=== PATIENT | male | born 1945 | race Caucasian/White ===

== ENCOUNTER 2024-10-21 07:50 | Day surgery (SDC) | payer OTHER, MEDICAID, SELFPAY ==
[2024-10-20 09:50] VITALS: BMI 20.8
--- NOTE | 2024-10-20 10:06 | EKG_ITS ---
[facility] Test Date: 2024-10-20 Pat Name: EMI LINTON Department: Room: - Gender: Male Data Warehouse Developer: JACINTO : 1945 Requested By: Remberto Washington Order Number: [id number] Reading MD: Remberto Washington Measurements Intervals [place] Rate: 99 P: [place]: QRS: -62 QRSD: 80 T: 72 QT: 342 QTc: 440 Interpretive Statements ATRIAL FIBRILLATION LEFT ANTERIOR FASCICULAR BLOCK ANTEROSEPTAL MYOCARDIAL INFARCTION , OF INDETERMINATE AGE No previous ECG available for comparison /store/S0/[id number]
[2024-10-20 11:11] LABS: Basophils % (Auto) 0 % (0-2.5); Eosinophils # (Auto) 0.1 Thou/mm3 (0.0-0.5); Eosinophils % (Auto) 1 % (0-10); Hematocrit 38.7 % (41.0-53.0); Hemoglobin 13.4 g/dL (13.5-16.0); Immature Granulocytes % (Auto) 0 % (0-0); Immature Granulocytes Auto 0.04 Thou/mm3 (0.00-0.00); Lymphocytes # (Auto) 1.5 Thou/mm3 (1.0-4.8); Lymphocytes % (Auto) 15 % (10-50); Mean Corpuscular HGB Conc 34.6 g/dl (31.0-37.0); Mean Corpuscular Hemoglobin 33.9 pg (25.0-35.0); Mean Corpuscular Volume 98 fL (80-100); Monocytes # (Auto) 0.7 Thou/mm3 (0.0-0.8); Monocytes % (Auto) 7 % (0-12); Neutrophils # (Auto) 8.1 Thou/mm3 (1.8-7.7); Neutrophils % (Auto) 77 % (37-80); Nucleated Red Blood Cell % 0 /100 WBC (0); Platelet Count 267 Thou/mm3 (140-440); RDW Standard Deviation 47.7 fL (35.1-43.9); Red Blood Count 3.95 Miln/mm3 (4.50-5.90); White Blood Count 10.5 Thou/mm3 (3.8-10.6)
[2024-10-20 11:30] LABS: Alanine Aminotransferase 14 U/L (10-49); Albumin/Globulin Ratio 1.8 (1.2-2.2); Alkaline Phosphatase 97 U/L (46-116); Anion Gap 9 (7-16); Aspartate Amino Transferase 16 U/L (0-34); BUN/Creatinine Ratio 13 Ratio (12-20); Bilirubin,Total 0.6 mg/dL (0.3-1.2); Blood Urea Nitrogen 15 mg/dL (9-23); Calcium 10.4 mg/dL (8.3-10.6); Calcium (Corrected) 10.4 mg/dL (8.5-10.1); Carbon Dioxide 34.7 mMol/L (20.0-31.0); Chloride 97 mMol/L (98-107); Creatinine (Component) 1.2 mg/dL (0.6-1.3); Estimated Creatinine Clearance 44.4 mL/min (>60); Globulin 2.8 gm/dL (2.3-3.5); Glucose 147 mg/dL (74-106); Osmolality,Calculated 285 (275-295); Potassium 3.6 mMol/L (3.4-5.1); Sodium 141 mMol/L (136-145); Total Protein 7.8 gm/dL (5.7-8.2); eGFR > 60 See Note
[2024-10-20 11:44] LABS: Prothrombin Time 11.3 Seconds (9.0-12.2)
--- NOTE | 2024-10-20 14:20 | SUR.PREOP ---
Instructions given to pt's son and Dipika nurse at [facility] for pt to be NPO afer [place], pt may take HTN meds with a sipp of water in AM, pt to be bath with CHG soap today and tomorrow before appt. Pt to be here at 0800 AM tomorrow.
--- NOTE | 2024-10-20 14:38 | SUR.PREOP ---
Cardiac echo and EKG reviewed with Dr Washington.
[2024-10-21] VITALS (8 sets, daily range): BP systolic 109–132; BP diastolic 64–82; PULSE 80–94; RESP 12–18; TEMP 36.2–36.9; O2SAT 98–100; BMI 21.3
--- NOTE | 2024-10-21 11:35 | SUR.PHASEI ---
1135: Pt. wakes to name then drifts back to sleep, vitals stable, breathing unlabored, dressing to right lower ABD CDI, no active bleed noted, report received from Roxi HODGE and MD Washington.
--- NOTE | 2024-10-21 11:39 | PD.SUROPNT ---
Date of Procedure 10/21/24 Pre Op Diagnosis Large symptomatic right inguinal hernia Post Op Diagnosis Same, indirect inguinal hernia Procedure Repair of the right indirect inguinal hernia with high ligation of the sac and placement of 2 x 4 Marlex mesh on the floor of the inguinal canal Findings Patient was found to have a large indirect hernia which was firmly adherent to the cord structures which was and ligated doubly. The floor of the inguinal canal appeared strong Procedure Description After the patient was given LMA anesthesia is lower abdomen was prepped with chloreprep solution and draped. Standard right groin incision was made in the external oblique was reached. Incision was made over the external oblique and the patient was found to have a large sac next to the cord structures. The cord structures were encircled around a [place] drain and the sac was easily . It was opened and was found to contain none because it was reduced before the surgery.. Patient had a large opening in this hernial sac in the mouth of the internal ring was wide. I suture ligated this with 2-0 chromic and then divided. Another 2-0 chromic suture ligation was used to prevent any slippage of the previous suture. Then I palpated the floor of the inguinal canal which appeared to be strong. I placed a 2 x 4 Marlex mesh and attached it medially to the pubic tubercle and laterally it was tucked underneath the external oblique after crossing the cord structures. I placed one stitch of Prolene lateral to the cord structures. Then external oblique was closed with running 2-0 Vicryl and subcutaneous tissues was approximated with 30 plain I injected half percent Marcaine with epinephrine for analgesia and the skin was closed with 4-0 Monocryl. Dressing was applied with Adaptic and 4 x 4 and the patient tolerated the procedure well and left operating room in stable condition. Anesthesia other Pathology / specimen None IVF Infused 600 Estimated Blood Loss 20 Condition Stable Disposition PACU Surgeon Kadeem Kan MD Surgical Staff Operation Date: 10/21/24 10:00 Case Staff Anesthesiologist: Remberto Washington [id number] consultant: Mercedes Mcnamara
--- NOTE | 2024-10-21 11:50 | SUR.PHASEI ---
pt drowsy but arouses to verbal commands, breathing unlabored, dressing to right inguinal region clean, dry, and intact, report from Priscilla HODGE
--- NOTE | 2024-10-21 12:27 | SUR.PHASEII ---
Report to Priscilla HODGE
--- NOTE | 2024-10-21 12:27 | SUR.PHASEII ---
1227: Pt. AAOx4, vitals stable, breathing unlabored, no complaint of pain or nausea, dressing to right lower ABD CDI, no active bleed noted, pt. meets DC criteria, Priscilla HODGE resuming care of pt., report received from Wen Wong RN.
--- NOTE | 2024-10-21 12:35 | SUR.PHASEII ---
1235: Pt. AAOx4, vitals stable, breathing unlabored, no complaint of pain or nausea, dressing to lower right ABD CDI, no active bleed noted, pt. tolerated bites of ice well, pt. ambulated to wheelchair with minimal assist, tolerated well, gave discharge instructions to the pt. and his ride, both verbalized understanding and had no further questions. Pt. left with all personal belongings.
== END 2024-10-21 12:35 | disposition home or self-care (01) ==
PROVIDERS: PCP Family Medicine; Referring Provider Surgery; Visit Provider Surgery
PROC: (CPT 49505; principal; 2024-10-21 10:00)
DX: K40.90 Unilateral inguinal hernia, without obstruction or gangrene, not specified as recurrent (principal); Z01.810 Encounter for preprocedural cardiovascular examination
CPT/HCPCS: 49505; 36415; 80053; 85025; 85610; 85730; 93005; A4217; A4649; C1781; J1100; J2250; J2704; J2765; J3010; J3490

== ENCOUNTER 2024-12-15 16:01 | Emergency (ER) | payer OTHER, MEDICAID, SELFPAY ==
[2024-12-15 16:04] VITALS: PULSE 87; RESP 16; O2SAT 97
[2024-12-15 16:29] VITALS: BP 135/92; PULSE 89; RESP 17; O2SAT 96
[2024-12-15 16:38] VITALS: TEMP 36.8
--- NOTE | 2024-12-15 16:38 | XR_ITS ---
Examination: CT cervical spine without contrast 2-D sagittal reconstructions 2-D coronal reconstructions 3-D reconstructions. Exam date and time:December 15, 2024 1648 hrs. Indications: Patient fell today with into the neck, neck pain CTDI:vol (mGy) 8.13 DLP: (mGycm) 195 Technique: Multiple 2 mm axial sections of the cervical spine have been obtained. The coronal and sagittal reconstructions have been obtained. 3-D reconstructions have been obtained. Low dose protocols were performed. One or more of the following dose reduction techniques were used; automated exposure control, adjustment of the mA and/or KV according to patient size, use of iterative reconstruction technique. Findings: Axial sections demonstrate intact base of the skull. C1 exhibit satisfactory relationship to the odontoid. No acute cervical vertebral body fracture seen. Alignment posterior spinous processes satisfactory. Impression: No acute cervical fracture.
--- NOTE | 2024-12-15 16:38 | XR_ITS ---
Examination: CT brain head without contrast. 2-D sagittal coronal reconstructions Date and time of exam:December 15, 2024 1648 hrs. Indications: Patient fell today with injury to the head, head pain CTDI: vol (mGy):55.8 DLP: (mGycm):1218 Technique: Multiple CT axial sections of the brain have been obtained, 5 mm slice thickness. Contrast has not been administered. 2-D sagittal, coronal reconstructions have been obtained Low dose protocols were performed. One or more of the following dose reduction techniques were used; automated exposure control, adjustment of the mA and/or KV according to patient size, use of iterative reconstruction technique. Findings: No significant ventricular enlargement. Encephalomalacia left frontal lobe Intra-axial or extra-axial hemorrhage density is not seen. No mass effect or midline shift Basal cisterns are not remarkable. Fourth ventricle is midline. Cranial vault intact. Impression: Negative for acute hemorrhage, mass effect or midline shift
--- NOTE | 2024-12-15 16:39 | EDNOTE_ITS ---
<Statement entered by Morena Damon MD - 12/16/24 01:45> As co-signing physician, I was present and available for consult prn. I concur with the plan and care as documented by the midlevel provider. ED General RME/HPI General Chief complaint: Seizure Stated complaint: SEIZURES Time Seen by Provider: 12/15/24 16:32 Arrival date/time: 12/15/24 16:01 CC: Seizure resulting in ground-level fall HPI patient presents to the ER via EMS from assisted care facility so at [facility]. Where the patient is a full code. Patient at the time of the exam at 1640 was awake alert oriented x 2 complaining of right side/flank pain status post fall. Patient denies shortness of breath or difficulty breathing but is complaining of a cough prior to the seizure. Review of the medical records supplied from the health system care facility shows the patient is not on any blood thinners. But does take Keppra. Related Data Home Medications ?Medication ?Instructions ?Recorded ?Confirmed Levothyroxine * (SYNTHROID *) 100 mcg PO QDAY #0 tabs 09/15/16 10/20/24 amlodipine 5 mg tablet (Norvasc) 5 mg PO QDAY #0 tabs 09/15/16 10/20/24 hydrochlorothiazide 25 mg tablet 25 mg PO QAM #0 tabs 09/15/16 10/20/24 lisinopril 20 mg tablet 20 mg PO QDAY #0 tabs 10/20/24 aspirin 81 mg tablet,delayed 81 mg PO QDAY 06/10/24 release cyclobenzaprine 5 mg tablet 5 mg PO QHSPRN PRN Muscle Spasm 06/10/24 10/20/24 donepezil 5 mg tablet 5 mg PO HS 06/10/24 10/20/24 hydrocodone 5 mg-acetaminophen 325 1 tab PO TID PRN Pa in 06/10/24 10/20/24 mg tablet levetiracetam 500 mg tablet 1,000 mg PO BID 06/10/24 1 (Keppra) metformin 1,000 mg tablet 1,000 mg PO BID 06/10/24 bisacodyl 10 mg rectal suppository 10 mg VT QDAY PRN C onstipation 10/20/24 10/20/24 (Dulcolax (bisacodyl)) divalproex 250 mg tablet,delayed 250 mg PO BID 4 10/20/24 release (Depakote) oseltamivir 75 mg capsule (Tamiflu) 75 mg PO Q12H 09/2310/20/24 Allergies Allergy/AdvReac Type Severity Reaction Status Date / Time No Known Allergies Allergy Verified 10/21/24 08:26 Review of Systems Review of Systems Narrative Review of Systems: GEN: No fever, no chills, no weight loss EYES: No discharge, no visual changes, no pain HEENT: No ear pain, no congestion, no sore throat PULM: No shortness of breath, no cough, no congestion CV: No chest pain, no dyspnea on exertion, no palpitations GI: No nausea, no vomiting, no diarrhea, no pain, no constipation : No frequency, no urgency, no dysuria MUSC/SKEL: No joint pain, no back pain SKIN: No rash PSYCH: No hallucinations, no depression HEME/LYMPH: No easy bleeding or bruising tendencies NEURO: No weakness, no headache Past Medical History Past Medical History NEUROLOGIC: Positive Neurological Disorders, Cerebrovascular Accident, Transient Ischemic Attacks (TIA), Dementia (forgetful), Alzheimer's Disease, Seizures and Subdural Hematoma CARDIAC: Positive Cardiac Disorders, Atrial Fibrillation and Hypertension; Negative Congestive Heart Failure RESPIRATORY: Negative Chronic Obstructive Pulmonary Disease (COPD) GASTROINTESTINAL: Negative Gastrointestinal Disorders GENITOURINARY: Negative Genitourinary Disorders or Renal Disease MUSCULOSKELETAL: Positive Musculoskeletal Disorders (vertebral fractures, spinal stenosis) ENDOCRINE: Positive Diabetes Mellitus Type 2 and Hypothyroidism; Negative Diabetes Mellitus Type 1 HEMATOLOGIC: Negative Blood Disorders OTHER HISTORY: Negative Autoimmune Disease, Blood Transfusions, Anesthesia Reactions or Cancer Family History FAMILY HISTORY: Negative Family Psychiatric Problems, Family Respiratory Disorders, Family Cardiac Disorders, Family Gastrointestinal Problems, Family Cancer, Family Surgery or Family Anesthesia Reaction Social History SMOKING STATUS: Never smoker SUBSTANCE USE: does not use ED Exam Narrative Physical exam: [General: Appears not in any acute distress Head normocephalic HEENT: Within acceptable limits Neck is supple nontender Chest equal chest rise nontender to palpation Respiratory: Clear to auscultation no wheezes crackles or rubs CV: Rate rhythm is regular no murmurs rubs or clicks Abdomen is soft nontender no masses positive bowel sounds all 4 quadrants Back: No CVA tenderness no spinous process tenderness from cervical spine thoracic and lumbar spine Skin: Small partial-thickness abrasion to the right flank just above the iliac crest. No active bleeding. Otherwise skin is intact no petechiae rash induration ulceration or crepitus Extremities: Moving all extremity against resistance cap refill less than 2 seconds neurosensory intact Neuro: Awake alert oriented x2, person and place, Glascow coma 15 no focal deficits] Course Quality Measures none Orders Category Date Time Status Saline [Insert IV] NOW Care 12/15/24 16:[address] cervical spine wo con Stat Exams 12/15/24 16:[address] head/brain wo con Stat Exams 12/15/24 16:38 Completed CBC Stat Lab 12/15/24 17:04 Completed CMP [Comprehensive Metabolic Panel] Stat Lab 12/15/24 17:04 Completed PT [Prothrombin Time with INR] Stat Lab 12/15/24 17:04 Completed PTT [Partial Thromboplastin Time] Stat Lab 12/15/24 17:04 Completed Urinalysis, C/S if Indicated Stat Lab 12/15/24 19:38 Completed levETIRAcetam INJ [Keppra Inj] Med 12/15/24 16:38 Discontinued 1,000 mg IVP X1 ONE Vital Signs Vital signs: Vital Signs Pulse Rate 89 12/15/24 16:29 Respiratory Rate 17 12/15/24 16:29 Blood Pressure 135/92 H 12/15/24 16:29 Pulse Oximetry (%) 96 12/15/24 16:29 Oxygen Delivery Method Nasal Cannula 12/15/24 16:29 Oxygen Flow Rate 2 12/15/24 16:29 [facility] Patient data External records reviewed:: [facility] previous records and EMS form Clinical information provided by:: EMS Social determinants that could affect healthcare access:: none Patient has the following chronic illnesses:: Diabetes hypothyroidism seizure disorder How is presenting disease/condition affected by chronic disease/condition?: e xacerbated by Evaluation data The following diagnostics were reviewed and interpreted by me:: lab results and radiology exam(s) Lab and/or radiology exams considered but not ordered:: CBC shows no acute leukocytosis hemoglobin hematocrit of 11 and 31 respectively platelets within normal limits Coags within acceptable limits CMP shows potassium 3.3 of CO2 of 32.7 glucose of 191 no other electrolyte imbalances renal impairment transaminitis or T. bili elevation Urine is negative for urinary tract infection. CT head and C-spine as interpreted by me read by radiology as negative for any acute finding. Interpretation Summary: There is no acute finding other than the seizure. Patient will be discharged home. Medications Medications considered but not ordered:: None Medication administrations:: Medication Administration History Discontinued Medications Levetiracetam (Levetiracetam Inj 100 Mg/Ml Vial 5ml) 1,000 mg IVP X1 ONE Stop: 12/15/24 16:39 Last Admin: 12/15/24 16:51 Dose: 1,000 mg Documented By: RIAMUNDO None Consultations Consultation(s) initiated? (list below): No Diagnosis Differential Diagnosis ED Complaint MDM: Seizure disorder URI UTI Most likely diagnosis given after review of the tests above:: Seizure disorder Admission Indicated Admission indicated?: not indicated Explain why admission is indicated or not indicated:: Stable for discharge Admission Request Was there a request for admission?: No Disposition Plan Disposition Plan: Discharge Discharge Attestation Discharge Attestation: The patient and all family members were given an opportunity to ask questions and understood the discharge instructions. Discharge instructions specifically effects, indications for sooner follow up or return to the emergency department, and the expected course of current diagnosis. Patient condition: Stable Medical Decision Making Differential Diagnosis Differential Diagnosis: Seizure disorder URI UTI Lab Data 12/15/24 17:04 12/15/24 17:04 Labs: Lab Results 12/15/24 12/15/24 Range/Units 17:04 19:38 WBC 9.5 (3.8-10.6) Thou/mm3 RBC 3.28 L (4.50-5.90) Miln/mm3 Hgb 11.2 L (13.5-16.0) g/dL Hct 31.3 L (41.0-53.0) % MCV 95 (80-100) fL MCH 34.1 (25.0-35.0) pg MCHC 35.8 (31.0-37.0) g/dl RDW Std Deviation 44.4 H (35.1-43.9) fL Plt Count 192 (140-440) Thou/mm3 Neut % (Auto) 78 (37-80) % Lymph % (Auto) 12 (10-50) % [place] % (Auto) 9 (0-12) % Eos % (Auto) 1 (0-10) % Baso % (Auto) 0 (0-2.5) % Neut # (Auto) 7.4 (1.8-7.7) Thou/mm3 Lymph # (Auto) 1.1 (1.0-4.8) Thou/mm3 [place] # (Auto) 0.8 (0.0-0.8) Thou/mm3 Eos # (Auto) 0.1 (0.0-0.5) Thou/mm3 Baso # (Auto) 0.0 (0.0-0.2) Thou/mm3 Immature Gran # (Auto) 0.03 H (0.00-0.00) Thou/mm3 Absolute Nucleated RBC 0.00 (0.00-0.00) Thou/mm3 Immature Gran % 0 (0-0) % Nucleated RBC % 0 (0) /100 WBC PT 11.4 (9.0-12.2) Seconds INR 1.0 (0.9-1.3) APTT 24.2 (22.0-36.0) Seconds Sodium 140 (136-145) mMol/L Potassium 3.3 L (3.4-5.1) mMol/L Chloride 100 (98-107) mMol/L Carbon Dioxide 32.7 H (20.0-31.0) mMol/L Anion Gap 7 (7-16) BUN 17 (9-23) mg/dL Creatinine 1.0 (0.6-1.3) mg/dL Estim Creat Clear Calc 66.1 (>60) mL/min eGFR > 60 (60 - ) See Note BUN/Creatinine Ratio 17 (12-20) Ratio Glucose 181 H (74-106) mg/dL Calculated Osmolality 285 (275-295) Calcium 9.2 (8.3-10.6) mg/dL Corrected Calcium 9.3 (8.5-10.1) mg/dL Total Bilirubin 0.4 (0.3-1.2) mg/dL AST 12 (0-34) U/L ALT 10 (10-49) U/L Alkaline Phosphatase 80 (46-116) U/L Total Protein 6.4 (5.7-8.2) gm/dL Albumin 3.9 (3.4-4.8) gm/dL Globulin 2.5 (2.3-3.5) gm/dL Albumin/Globulin Ratio 1.6 (1.2-2.2) Ur Collection Type Clean Catch Urine Color Colorless A (Lt Yel-Yel) Urine Clarity Clear (Clear/Hazy) Urine pH 7.5 H (5.0-7.0) Ur Specific [place] 1.010 (1.001-1.035) Urine Protein Negative (Neg - Trace) Urine Glucose (UA) Trace (Negative) Urine Ketones Negative (Negative) Urine Blood Negative (Negative) Urine Nitrite Negative (Negative) Urine Bilirubin Negative (Negative) Urine Urobilinogen (Auto) Negative (0.0-1.0) mg/dL Ur Leukocyte Esterase Negative (Negative) Urine RBC 0 (0-3) /hpf Urine WBC 1 (0-5) /hpf Ur Squamous Epith Cells 0 (0-5) /hpf Urine Bacteria None (None) Ur Culture Indicated? Not Indicated Discharge Plan Plan Patient Disposition: HOME (Self Care) Patient condition on transfer: Stable Prescriptions/Referrals Prescriptions/Med Rec: No Action lisinopril 20 MG tablet 20 mg PO QDAY Qty: 0 amlodipine [Norvasc] 5 MG tablet 5 mg PO QDAY Qty: 0 hydrochlorothiazide 25 MG tablet 25 mg PO QAM Qty: 0 Levothyroxine * (SYNTHROID *) 100 MCG tablet 100 mcg PO QDAY Qty: 0 divalproex [Depakote] 250 mg Tablet,Delayed Release (Dr/Ec) 250 mg PO BID bisacodyl [Dulcolax (bisacodyl)] 10 mg Suppository 10 mg VT QDAY PRN (Reason: Constipation) oseltamivir [Tamiflu] 75 mg Capsule 75 mg PO Q12H donepezil 5 mg Tablet 5 mg PO HS levetiracetam [Keppra] 500 mg Tablet 1,000 mg PO BID hydrocodone-acetaminophen 5-325 mg Tablet 1 tab PO TID PRN (Reason: Pain) aspirin 81 mg Tablet,Delayed Release (Dr/Ec) 81 mg PO QDAY metformin 1,000 mg Tablet 1,000 mg PO BID cyclobenzaprine 5 mg Tablet 5 mg PO QHSPRN PRN (Reason: Muscle Spasm) Referrals: Rick Galvez MD [Primary Care Provider] - In 1 week Problem List Clinical Impression: Seizure disorder Patient/Caregiver Discharge Instructions Education Materials: Self-Care for Epilepsy Print Language: Green[place]ic Stand Alone Forms: Margaret Award Info., Work/School Release, Patient Portal Info Letter PA/STOCK SAW OPERATOR Supervising Physician PA/STOCK SAW OPERATOR Supervising Physician: Chi Rincon ENP
[2024-12-15] MEDS: levETIRAcetam INJ 100 MG/ML VIAL 5ML 1000 MG IVP (16:51)
[2024-12-15 17:15] LABS: Basophils % (Auto) 0 % (0-2.5); Eosinophils # (Auto) 0.1 Thou/mm3 (0.0-0.5); Eosinophils % (Auto) 1 % (0-10); Hematocrit 31.3 % (41.0-53.0); Hemoglobin 11.2 g/dL (13.5-16.0); Immature Granulocytes % (Auto) 0 % (0-0); Immature Granulocytes Auto 0.03 Thou/mm3 (0.00-0.00); Lymphocytes # (Auto) 1.1 Thou/mm3 (1.0-4.8); Lymphocytes % (Auto) 12 % (10-50); Mean Corpuscular HGB Conc 35.8 g/dl (31.0-37.0); Mean Corpuscular Hemoglobin 34.1 pg (25.0-35.0); Mean Corpuscular Volume 95 fL (80-100); Monocytes # (Auto) 0.8 Thou/mm3 (0.0-0.8); Monocytes % (Auto) 9 % (0-12); Neutrophils # (Auto) 7.4 Thou/mm3 (1.8-7.7); Neutrophils % (Auto) 78 % (37-80); Nucleated Red Blood Cell % 0 /100 WBC (0); Platelet Count 192 Thou/mm3 (140-440); RDW Standard Deviation 44.4 fL (35.1-43.9); Red Blood Count 3.28 Miln/mm3 (4.50-5.90); White Blood Count 9.5 Thou/mm3 (3.8-10.6)
[2024-12-15 17:30] VITALS: BMI 23.1
[2024-12-15 17:34] LABS: Partial Thromboplastin Time 24.2 Seconds (22.0-36.0); Prothrombin Time 11.4 Seconds (9.0-12.2)
[2024-12-15 17:36] LABS: Alanine Aminotransferase 10 U/L (10-49); Albumin, Serum 3.9 gm/dL (3.4-4.8); Albumin/Globulin Ratio 1.6 (1.2-2.2); Anion Gap 7 (7-16); Aspartate Amino Transferase 12 U/L (0-34); BUN/Creatinine Ratio 17 Ratio (12-20); Bilirubin,Total 0.4 mg/dL (0.3-1.2); Blood Urea Nitrogen 17 mg/dL (9-23); Calcium 9.2 mg/dL (8.3-10.6); Calcium (Corrected) 9.3 mg/dL (8.5-10.1); Carbon Dioxide 32.7 mMol/L (20.0-31.0); Chloride 100 mMol/L (98-107); Estimated Creatinine Clearance 66.1 mL/min (>60); Globulin 2.5 gm/dL (2.3-3.5); Glucose 181 mg/dL (74-106); Osmolality,Calculated 285 (275-295); Potassium 3.3 mMol/L (3.4-5.1); Sodium 140 mMol/L (136-145); Total Protein 6.4 gm/dL (5.7-8.2); eGFR > 60 See Note
[2024-12-15 17:51] LABS: Alkaline Phosphatase 80 U/L (46-116)
[2024-12-15 19:53] LABS: Collection Type, Urine Clean Catch; RBC,Urine 0 /hpf (0-3); Squamous Epithelial Cell,Urine 0 /hpf (0-5)
[2024-12-15 20:08] LABS: Bilirubin,Urine Negative (Negative); Blood,Urine Negative (Negative); Clarity,Urine Clear (Clear/Hazy); Color,Urine Colorless (Lt Yel-Yel); Culture Indicated,Urine Not Indicated; Glucose, Urine Trace (Negative); Ketones,Urine Negative (Negative); Leukocyte Esterase,Urine Negative (Negative); Nitrite,Urine Negative (Negative); PH,Urine 7.5 (5.0-7.0); Protein,Urine Negative (Neg - Trace); Urobilinogen,Urine Negative mg/dL (0.0-1.0); WBC,Urine 1 /hpf (0-5)
[2024-12-15 20:59] VITALS: BP 150/88; PULSE 88; RESP 15; O2SAT 95
== END 2024-12-15 22:35 | disposition home or self-care (01) ==
PROVIDERS: Registered Nurse General Practice; Emergency Provider Emergency Medicine; PCP Family Medicine
DX: R56.9 Unspecified convulsions (principal)
CPT/HCPCS: 36415; 70450; 72125; 80053; 81001; 85025; 85610; 85730; 96374; 99284; J1953

== ENCOUNTER 2025-02-15 08:13 | Emergency (ER) | payer OTHER, MEDICAID, SELFPAY ==
[2025-02-15 08:17] VITALS: PULSE 113; RESP 20; O2SAT 98
--- NOTE | 2025-02-15 08:18 | EKG_ITS ---
[facility] Test Date: 2025-02-15 Pat Name: EMI LINTON Department: Room: - Gender: Male Rail Switchman: : 1945 Requested By: Morena Damian Order Number: [id number] Reading MD: Morena Damian Measurements Intervals [place] Rate: 88 P: [place]: QRS: -41 QRSD: 93 T: 67 QT: 381 QTc: 462 Interpretive Statements ATRIAL FLUTTER/TACHYCARDIA LEFT AXIS DEVIATION [QRS AXIS < -30] LOW QRS VOLTAGE IN EXTREMITY LEADS [QRS DEFLECTION < 0.5 mV IN LIMB LEADS] Compared to ECG 10/20/2024 11:10:23 Left-axis deviation now present Low QRS voltage now present Atrial fibrillation no longer present Left anterior fascicular block no longer present Myocardial infarct finding no longer present /store/S0/[id number]
--- NOTE | 2025-02-15 08:27 | PC.NURSE ---
BIBA FROM [facility] FOR UNWITNESSED SEIZURE, PT ALERT [facility]CS 14 UPON ARRIVAL. DENIES ANY CURRENT PAIN. PT HAS KNOWN SEIZURE HX WELL A.FIB. AWAITING PROVIDER EVALUATION
[2025-02-15 08:30] VITALS: BP 151/98; PULSE 93; RESP 18; TEMP 36.8; O2SAT 97; BMI 21.8
[2025-02-15 08:58] LABS: Collection Type, Urine Clean Catch
--- NOTE | 2025-02-15 08:58 | PD.EDSEIZ ---
ED Seizures RME/HPI General Chief Complaint: Seizure Stated Complaint: SEIZURE Time Seen by Provider: 02/15/25 08:15 Arrival date/time: 02/15/25 08:13 RME / HPI RME / HPI Narrative: 79 year old male with history of type 2 diabetes, hypertension, Alzheimer's disease, dementia, seizures, presented to the ER BIBA from [facility] ([facility]) with a chief complaint of seizure witnessed by staff at [facility]. Per patient, he stated I am feeling good, I don't remember anything. Patient stated no other complaints. Related Data Home Medications ?Medication ?Instructions ?Recorded ?Confirmed Levothyroxine * (SYNTHROID *) 100 mcg PO QDAY #0 tabs 09/15/16 10/20/24 amlodipine 5 mg tablet (Norvasc) 5 mg PO QDAY #0 tabs 09/15/16 10/20/24 hydrochlorothiazide 25 mg tablet 25 mg PO QAM #0 tabs 09/15/16 10/20/24 lisinopril 20 mg tablet 20 mg PO QDAY #0 tabs 09/15/16 10/20/24 aspirin 81 mg tablet,delayed 81 mg PO QDAY 06/10/24 10/20/24 release cyclobenzaprine 5 mg tablet 5 mg PO QHSPRN PRN Muscle Spasm 06/10/24 10/20/24 donepezil 5 mg tablet 5 mg PO HS 06/10/24 10/20/24 hydrocodone 5 mg-acetaminophen 325 1 tab PO TID PRN Pain 06/10/24 10/20/24 mg tablet levetiracetam 500 mg tablet 1,000 mg PO BID 06/10/24 10/20/24 (Keppra) metformin 1,000 mg tablet 1,000 mg PO BID 06/10/24 10/20/24 bisacodyl 10 mg rectal suppository 10 mg OK QDAY PRN Constipation 10/20/24 10/20/24 (Dulcolax (bisacodyl)) divalproex 250 mg tablet,delayed 250 mg PO BID 10/20/24 10/20/24 release (Depakote) oseltamivir 75 mg capsule (Tamiflu) 75 mg PO Q12H 10/20/24 10/20/24 Allergies Allergy/AdvReac Type Severity Reaction Status Date / Time No Known Allergies Allergy Verified 02/15/25 08:24 Review of Systems Review of Systems Systems Reviewed: All systems reviewed, normal except as documented Narrative Review of Systems: Gen: No fever, no chills, no weight loss EYES: No discharge, no visual changes, no pain HEENT: No ear pain, no congestion, no sore throat PULM: No shortness of breath, no cough, no congestion CV: No chest pain, no dyspnea on exertion, no palpitations GI: No nausea, no vomiting, no diarrhea, no pain, no constipation : No frequency, no urgency, no dysuria Musc/skel: No joint pain, no back pain Skin: No rash Psyc: No hallucinations, no depression Heme/Lymph: No easy bleeding or bruising tendencies Neuro: No weakness, no headache Past Medical History Past Medical History NEUROLOGIC: Positive Neurological Disorders, Cerebrovascular Accident, Transient Ischemic Attacks (TIA), Dementia, Alzheimer's Disease, Seizures and Subdural Hematoma CARDIAC: Positive Cardiac Disorders, Atrial Fibrillation and Hypertension MUSCULOSKELETAL: Positive Musculoskeletal Disorders ENDOCRINE: Positive Diabetes Mellitus Type 2 and Hypothyroidism Family History FAMILY HISTORY: Negative Family Psychiatric Problems, Family Respiratory Disorders, Family Cardiac Disorders, Family Gastrointestinal Problems, Family Cancer, Family Surgery or Family Anesthesia Reaction Social History SMOKING STATUS: Smoker, status unknown SUBSTANCE USE: does not use ED Exam Narrative Physical exam: GENERAL APPEARANCE: alert and oriented x 4, well-developed, well-nourished, no acute distress HEENT: Normocephalic, atraumatic; pupils equal, round, reactive to light; EOMI; mucous membranes pink, moist; oropharynx clear NECK: Supple LUNGS: CTABL; no wheezes, no rales, no rhonchi HEART: Regular rate, regular rhythm; normal S1, S2; no murmurs ABDOMEN: non distended; normal BS; soft, no tenderness, no guarding, no rebound; no masses, no organomegaly, no hernia BACK: no CVA tenderness EXTREMITIES: atraumatic; no edema NEUROLOGIC: awake; alert and oriented x4; cranial nerves II-XII grossly intact; no focal sensory or motor deficits PSYCHIATRIC: appropriate mood and affect SKIN: warm, dry, normal color; no rashes Course Quality Measures none Orders Category Date Time Status Linux Unix System Administrator NOW Care 02/15/25 08:18 Active EKG (ED ONLY) *Do not use* NOW Care 02/15/25 08:18 Completed EKG (ED Only) Stat Exams 02/15/25 08:18 Draft B-Type Natriuretic Peptide Stat Lab 02/15/25 08:53 Completed CBC Stat Lab 02/15/25 08:45 Completed Comprehensive Metabolic Panel Stat Lab 02/15/25 08:53 Completed Drug Screen,Urine Stat Lab 02/15/25 08:53 Completed Magnesium Stat Lab 02/15/25 08:53 Completed Partial Thromboplastin Time Stat Lab 02/15/25 08:45 Completed Prothrombin Time with INR Stat Lab 02/15/25 08:45 Completed Troponin I Stat Lab 02/15/25 08:53 Completed UA, C/S IF [Urinalysis, C/S if Indicated] Stat Lab 02/15/25 08:45 Completed KCL 10% Liq UDC 15 ML Med 02/15/25 11:36 Discontinued 40 meq PO X1 ONE levETIRAcetam INJ [Keppra Inj] Med 02/15/25 08:19 Discontinued 1,000 mg IVP X1 ONE Vital Signs Vital signs: Vital Signs Temperature 98.2 F 02/15/25 08:30 Pulse Rate 93 02/15/25 08:30 Respiratory Rate 18 02/15/25 08:30 Blood Pressure 151/98 H 02/15/25 08:30 Pulse Oximetry (%) 97 02/15/25 08:30 Oxygen Delivery Method Room Air 02/15/25 08:30 Seizure MDM Narrative MDM Narrative:: Bria Zuniga am scribing for and in the presence of Dr. Damon. Patient data External records reviewed:: [facility] previous records and Custodial records ([facility]) Clinical information provided by:: patient and other (specify) (RN) Social determinants that could affect healthcare access:: housing (SNF) Patient has the following chronic illnesses:: type 2 diabetes, hypertension, Alzheimer's disease, dementia, seizures How is presenting disease/condition affected by chronic disease/condition?: exacerbated by Evaluation data The following diagnostics were reviewed and interpreted by me:: lab results and EKG tracing(s) (EKG#1: EKG at 0827 hours.Interpreted by me: atrial flutter, rate 88, atrial fibrillation, Q-Wave at V1, Le3 at AVF, no ischemic changes ) Lab and/or radiology exams considered but not ordered:: none Interpretation Summary: n/a Medications / Prescriptions Medications or Prescriptions considered but not ordered:: none. Medication administrations:: Medication Administration History Discontinued Medications Levetiracetam (Levetiracetam Inj 100 Mg/Ml Vial 5ml) 1,000 mg IVP X1 ONE Stop: 02/15/25 08:20 Last Admin: 02/15/25 09:01 Dose: 1,000 mg Documented By: TM Potassium Chloride (Potassium Chloride 10% 20 Meq/15 Ml Udc) 40 meq PO X1 ONE Stop: 02/15/25 11:37 see above. Consultations Consultation(s) initiated? (list below): No Diagnosis Seizure Differential Diagnosis: intractable seizure disorder, focal seizure and generalized seizure Most likely diagnosis given after review of the tests above:: Recurrent seizures Admission Indicated Admission indicated?: not indicated Admission Request Was there a request for admission?: No Disposition Plan Disposition Plan: Discharge Discharge Attestation Discharge Attestation: The patient and all family members were given an opportunity to ask questions and understood the discharge instructions. Discharge instructions specifically effects, indications for sooner follow up or return to the emergency department, and the expected course of current diagnosis. Patient condition: Stable Discharge Plan Plan Patient Disposition: HOME (Self Care) Prescriptions/Referrals Prescriptions/Med Rec: No Action lisinopril 20 MG tablet 20 mg PO QDAY Qty: 0 amlodipine [Norvasc] 5 MG tablet 5 mg PO QDAY Qty: 0 hydrochlorothiazide 25 MG tablet 25 mg PO QAM Qty: 0 Levothyroxine * (SYNTHROID *) 100 MCG tablet 100 mcg PO QDAY Qty: 0 divalproex [Depakote] 250 mg Tablet,Delayed Release (Dr/Ec) 250 mg PO BID bisacodyl [Dulcolax (bisacodyl)] 10 mg Suppository 10 mg OK QDAY PRN (Reason: Constipation) oseltamivir [Tamiflu] 75 mg Capsule 75 mg PO Q12H donepezil 5 mg Tablet 5 mg PO HS levetiracetam [Keppra] 500 mg Tablet 1,000 mg PO BID hydrocodone-acetaminophen 5-325 mg Tablet 1 tab PO TID PRN (Reason: Pain) aspirin 81 mg Tablet,Delayed Release (Dr/Ec) 81 mg PO QDAY metformin 1,000 mg Tablet 1,000 mg PO BID cyclobenzaprine 5 mg Tablet 5 mg PO QHSPRN PRN (Reason: Muscle Spasm) Referrals: Lorraine Aburto MD [Primary Care Provider] - In 1 week Problem List Clinical Impression: Recurrent seizures Patient/Caregiver Discharge Instructions Education Materials: ED Seizure, Recurrent (Adult) Print Language: Maltese Stand Alone Forms: Margaret Award Info., Patient Portal Info Letter
[2025-02-15] MEDS: levETIRAcetam INJ 100 MG/ML VIAL 5ML 1000 MG IVP (09:01)
[2025-02-15 09:14] LABS: Basophils % (Auto) 0 % (0-2.5); Eosinophils # (Auto) 0.1 Thou/mm3 (0.0-0.5); Eosinophils % (Auto) 2 % (0-10); Hematocrit 36.5 % (41.0-53.0); Hemoglobin 12.8 g/dL (13.5-16.0); Immature Granulocytes % (Auto) 0 % (0-0); Immature Granulocytes Auto 0.02 Thou/mm3 (0.00-0.00); Lymphocytes # (Auto) 1.6 Thou/mm3 (1.0-4.8); Lymphocytes % (Auto) 30 % (10-50); Mean Corpuscular HGB Conc 35.1 g/dl (31.0-37.0); Mean Corpuscular Volume 97 fL (80-100); Monocytes # (Auto) 0.6 Thou/mm3 (0.0-0.8); Monocytes % (Auto) 12 % (0-12); Neutrophils # (Auto) 2.9 Thou/mm3 (1.8-7.7); Neutrophils % (Auto) 56 % (37-80); Nucleated Red Blood Cell % 0 /100 WBC (0); Platelet Count 170 Thou/mm3 (140-440); Red Blood Count 3.77 Miln/mm3 (4.50-5.90); White Blood Count 5.3 Thou/mm3 (3.8-10.6)
[2025-02-15 09:25] LABS: Bilirubin,Urine Negative (Negative); Blood,Urine Negative (Negative); Clarity,Urine Clear (Clear/Hazy); Color,Urine Lt-Yellow (Lt Yel-Yel); Culture Indicated,Urine Not Indicated; Glucose, Urine Negative (Negative); Ketones,Urine Negative (Negative); Leukocyte Esterase,Urine Negative (Negative); Nitrite,Urine Negative (Negative); Protein,Urine Trace (Neg - Trace); RBC,Urine 1 /hpf (0-3); Specific Gravity,Urine 1.017 (1.001-1.035); Squamous Epithelial Cell,Urine < 1 /hpf (0-5); Transitional Epi Cells,Urine < 1 /hpf (0-5); Urobilinogen,Urine Negative mg/dL (0.0-1.0); WBC,Urine 1 /hpf (0-5)
[2025-02-15 09:26] LABS: Partial Thromboplastin Time 23.9 Seconds (22.0-36.0); Prothrombin Time 11.2 Seconds (9.0-12.2)
[2025-02-15 09:28] LABS: B-Type Natriuretic Peptide 66 pg/mL (0-100)
[2025-02-15 09:29] LABS: Amphetamine/Methamp Scrn,U Negative (Negative); Barbiturate Screen,Urine Negative (Negative); Benzodiazepines Screen,Urine Negative (Negative); Benzoylecgonine Screen, Ur Negative (Negative); Fentanyl Screen,Urine Negative (Negative); Opiate Screen,Urine Negative (Negative); THC Screen,Urine Negative (Negative)
[2025-02-15 09:40] LABS: Alanine Aminotransferase 10 U/L (10-49); Albumin, Serum 4.3 gm/dL (3.4-4.8); Albumin/Globulin Ratio 1.6 (1.2-2.2); Alkaline Phosphatase 101 U/L (46-116); Anion Gap 12 (7-16); Aspartate Amino Transferase 15 U/L (0-34); BUN/Creatinine Ratio 18 Ratio (12-20); Bilirubin,Total 0.4 mg/dL (0.3-1.2); Blood Urea Nitrogen 21 mg/dL (9-23); Calcium 9.3 mg/dL (8.3-10.6); Calcium (Corrected) 9.3 mg/dL (8.5-10.1); Carbon Dioxide 31.3 mMol/L (20.0-31.0); Chloride 100 mMol/L (98-107); Creatinine (Component) 1.2 mg/dL (0.6-1.3); Estimated Creatinine Clearance 47.9 mL/min (>60); Globulin 2.7 gm/dL (2.3-3.5); Glucose 195 mg/dL (74-106); Magnesium 1.7 mg/dL (1.6-2.6); Osmolality,Calculated 292 (275-295); Potassium 3.3 mMol/L (3.4-5.1); Sodium 143 mMol/L (136-145); Troponin I < 0.020 ng/mL (0.0-0.045); eGFR > 60 See Note
[2025-02-15 10:12] VITALS: BP 112/69; PULSE 84; RESP 16; TEMP 36.7; O2SAT 97
[2025-02-15 12:06] VITALS: BP 111/84; PULSE 78; RESP 16; TEMP 36.4; O2SAT 95
--- NOTE | 2025-02-15 12:37 | PC.CC ---
Nereyda WRIGHT was consulted by bedside RN Cassandra for transportation for the patient back to [facility]. ASW made contact with [facility] to arrange transportation. ASW requested [facility].
[2025-02-15] MEDS: POTASSIUM CHLORIDE 10% 20 MEQ/15 ML UDC 40 MEQ PO (12:41)
--- NOTE | 2025-02-15 13:13 | PC.NURSE ---
AROUND 1200 THIS RN SPOKE W/SW ABOUT ARRANGING A RIDE BACK TO FACILITY. WILL WORK ON IT AND GIVE AN ETA
--- NOTE | 2025-02-15 14:52 | PC.CC ---
ASW has made [facility] and [facility] due to transportation not being able to be arranged as [facility] has yet to call [facility] with reservation number that was provided. This trip has been escalated but has not been able to be arranged due to lack of communication between [facility] to [facility].
--- NOTE | 2025-02-15 15:43 | PC.CC ---
JOZEFW, was on hold for 34 minutes with [facility] again on hold. Tracee with [facility] answered the phone and call disconnected.
--- NOTE | 2025-02-15 16:15 | PC.NURSE ---
SPOKE W/ERIAC NURSING MEDICAL AND HEALTH SERVICES MANAGER FROM SNF AND PROVIDED UPDATE.
--- NOTE | 2025-02-15 16:18 | PC.CC ---
After multiple attempts of a attempting to set up transportation with [facility] and multiple calls to them and [facility]. This commercial loan underwriter obtained an [place] by Transfer Nurse Kaya. ASW sent [place] to [facility].
--- NOTE | 2025-02-15 16:40 | PC.CC ---
Olinda with [facility] made contact with ASW and reports that transportation company was not found to transport patient. ASW informed Olinda that our choice of transportation is [facility]. Olinda contacted [facility] and arranged transportation. [place] was no longer needed. ETA p/u [id number]
[2025-02-15 19:15] VITALS: RESP 18
== END 2025-02-15 19:16 | disposition skilled nursing facility (03) ==
PROVIDERS: Emergency Provider Emergency Medicine; PCP Hospitalist
DX: R56.9 Unspecified convulsions (principal); E11.9 Type 2 diabetes mellitus without complications; E03.9 Hypothyroidism, unspecified; G30.9 Alzheimer's disease, unspecified; F02.80 Dementia in other diseases classified elsewhere, unspecified severity, without behavioral disturbance, psychotic disturbance, mood disturbance, and anxiety; I10 Essential (primary) hypertension
CPT/HCPCS: 36415; 80053; 80307; 81001; 83735; 83880; 84484; 85025; 85610; 85730; 93005; 99284; J1953; A9270

== ENCOUNTER 2025-03-24 23:07 | Emergency (ER) | payer MEDICARE, MEDICAID, SELFPAY ==
[2025-03-24 23:10] VITALS: PULSE 91
[2025-03-24 23:13] VITALS: PULSE 70
--- NOTE | 2025-03-24 23:14 | EKG_ITS ---
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
--- NOTE | 2025-03-24 23:16 | XR_ITS ---
Examination: AP chest single view TECHNIQUE: AP portable semiupright chest single view Date and time: March 24, 2025 at 11:35 PM INDICATIONS: Chest pain today. FINDINGS: Normal heart size. No pneumonia or pulmonary edema. Prominent osteopenia. IMPRESSION: No pneumonia or pulmonary edema
[2025-03-24 23:18] VITALS: BP 159/95; PULSE 98; RESP 18; TEMP 36.8; O2SAT 92
--- NOTE | 2025-03-24 23:42 | XR_ITS ---
Examination: CT brain head without contrast. 2-D sagittal coronal reconstructions Date and time of exam:March 25, 2025 0151 hours INDICATIONS: Seizure today, patient fell with injury to head, head pain COMPARISON: December 15, 2024 CTDI: vol (mGy):55.2 DLP: (mGycm):1178 Technique: Multiple CT axial sections of the brain have been obtained, 5 mm slice thickness. Contrast has not been administered. 2-D sagittal, coronal reconstructions have been obtained Low dose protocols were performed. One or more of the following dose reduction techniques were used; automated exposure control, adjustment of the mA and/or KV according to patient size, use of iterative reconstruction technique. Findings: No significant ventricular enlargement. Intra-axial or extra-axial hemorrhage density is not seen. No mass effect or midline shift Basal cisterns are not remarkable. Fourth ventricle is midline. Cranial vault intact. Impression: Negative for acute hemorrhage, mass effect or midline shift
--- NOTE | 2025-03-24 23:43 | PD.EDSEIZ ---
ED Seizures RME/HPI General Chief Complaint: Seizure Stated Complaint: FELL ,POSSIBLE SEIZURE Time Seen by Provider: 03/24/25 23:13 Arrival date/time: 03/24/25 23:07 RME / HPI RME / HPI Narrative: Dr. Ramirez?s Main ED Evaluation:?79 y/o male with Hx of Cerebrovascular Accident, Transient Ischemic Attacks, Dementia, Alzheimer's Disease, Seizures, Subdural Hematoma, Atrial Fibrillation, Hypertension, Congestive Heart Failure, and Diabetes Mellitus Type 2 BIBA from [facility] presents to ED c/o seizure-like activity x 1 hour ago. Patient denies chest wall pain, abdominal pain, or extremity pain. No other concerns or complaints expressed at this time. Related Data Home Medications ?Medication ?Instructions ?Recorded ?Confirmed Levothyroxine * (SYNTHROID *) 100 mcg PO QDAY #0 tabs 09/15/16 10/20/24 amlodipine 5 mg tablet (Norvasc) 5 mg PO QDAY #0 tabs 09/15/16 10/20/24 hydrochlorothiazide 25 mg tablet 25 mg PO QAM #0 tabs 09/15/16 10/20/24 lisinopril 20 mg tablet 20 mg PO QDAY #0 tabs 09/15/16 10/20/24 aspirin 81 mg tablet,delayed 81 mg PO QDAY 06/10/24 10/20/24 release cyclobenzaprine 5 mg tablet 5 mg PO QHSPRN PRN Muscle Spasm 06/10/24 10/20/24 donepezil 5 mg tablet 5 mg PO HS 06/10/24 10/20/24 hydrocodone 5 mg-acetaminophen 325 1 tab PO TID PRN Pain 06/10/24 10/20/24 mg tablet levetiracetam 500 mg tablet 1,000 mg PO BID 06/10/24 10/20/24 (Keppra) metformin 1,000 mg tablet 1,000 mg PO BID 06/10/24 10/20/24 bisacodyl 10 mg rectal suppository 10 mg TN QDAY PRN Constipation 10/20/24 10/20/24 (Dulcolax (bisacodyl)) divalproex 250 mg tablet,delayed 250 mg PO BID 10/20/24 10/20/24 release (Depakote) oseltamivir 75 mg capsule (Tamiflu) 75 mg PO Q12H 10/20/24 10/20/24 Allergies Allergy/AdvReac Type Severity Reaction Status Date / Time No Known Allergies Allergy Verified 02/15/25 08:24 Review of Systems Review of Systems Systems Reviewed: All systems reviewed, normal except as documented Past Medical History Past Medical History NEUROLOGIC: Positive Neurological Disorders, Cerebrovascular Accident, Transient Ischemic Attacks (TIA), Dementia, Alzheimer's Disease, Seizures and Subdural Hematoma CARDIAC: Positive Cardiac Disorders, Atrial Fibrillation and Hypertension; Negative Congestive Heart Failure MUSCULOSKELETAL: Positive Musculoskeletal Disorders ENDOCRINE: Positive Diabetes Mellitus Type 2 and Hypothyroidism ED Exam Narrative Physical exam: GENERAL APPEARANCE: alert and oriented x 2, well-developed, well-nourished, no acute distress VITALS: All vitals were reviewed and the pulse ox is 92% on room air, which is normal according to my interpretation. HEENT: Normocephalic, abrasion below the left eye, contusion and overlying abrasion to the left forehead; pupils equal, round, reactive to light; EOMI; mucous membranes pink, moist; oropharynx clear NECK: Supple LUNGS: CTABL; no wheezes, no rales, no rhonchi HEART: Regular rate, regular rhythm; normal S1, S2; no murmurs ABDOMEN: non distended; normal BS; soft, no tenderness, no guarding, no rebound; no masses, no organomegaly, no hernia BACK: no CVA tenderness, No midline to C-Spine TTP. EXTREMITIES: atraumatic; no edema NEUROLOGIC: awake; alert and oriented x2; cranial nerves II-XII grossly intact; no focal sensory or motor deficits PSYCHIATRIC: appropriate mood and affect SKIN: warm, dry, normal color; no rashes Course Quality Measures none Orders Category Date Time Status Brand Advocate STAT Care 03/24/25 23:16 Completed Continuous Pulse Oximetry ONCE Care 03/24/25 23:16 Completed EKG (ED ONLY) *Do not use* NOW Care 03/24/25 23:14 Completed Insert IV STAT Care 03/24/25 23:16 Completed Seizure precautions NOW Care 03/24/25 23:[address] head/brain wo con Stat Exams 03/24/25 23:42 Completed EKG (ED Only) Stat Exams 03/24/25 23:14 Draft XR chest 1V portable Stat Exams 03/24/25 23:16 Completed CBC Stat Lab 03/24/25 23:41 Completed CK [Creatine Kinase] Stat Lab 03/24/25 23:41 Completed Comprehensive Metabolic Panel Stat Lab 03/24/25 23:41 Completed Free T4 (Free Thyroxine) Stat Lab 03/24/25 23:41 Completed Lactate (Lactic Acid) Stat Lab 03/24/25 23:41 Completed Lactic Acid, 3 HR Stat Lab 03/25/25 03:38 Completed Magnesium Stat Lab 03/24/25 23:41 Completed Partial Thromboplastin Time Stat Lab 03/24/25 23:41 Completed Troponin I Stat Lab 03/24/25 23:41 Completed Potassium Chloride [K-Dur] Med 03/25/25 02:56 Discontinued 20 meq PO X1 ONE levETIRAcetam INJ [Keppra Inj] Med 03/24/25 23:14 Discontinued 1,000 mg IVP X1 ONE Vital Signs Vital signs: Vital Signs Pulse Rate 70 03/24/25 23:13 Seizure MDM Narrative MDM Narrative:: Scribe Attestation: IAbiola, am scribing for and in the presence of Dr. Ramirez. Provider Notation: Although this document has been carefully reviewed, there may still be some phonetic and other typographical errors.? These errors are purely grammatical due to imperfections in the software program and should not be construed in any way to? compromise the substance of the patient's medical care during this visit. Patient data External records reviewed:: [facility] previous records (Reviewed prior ED records from 02/15/25. Patient was seen for Recurrent seizures.) and EMS form Clinical information provided by:: patient and EMS Social determinants that could affect healthcare access:: housing (SNF resident) Patient has the following chronic illnesses:: Cerebrovascular Accident, Transient Ischemic Attacks, Dementia, Alzheimer's Disease, Seizures, Subdural Hematoma, Atrial Fibrillation, Hypertension, Congestive Heart Failure, Diabetes Mellitus Type 2 and Hypothyroidism How is presenting disease/condition affected by chronic disease/condition?: exacerbated by Evaluation data The following diagnostics were reviewed and interpreted by me:: lab results, radiology exam(s) and EKG tracing(s) Lab and/or radiology exams considered but not ordered:: None Interpretation Summary: RADIOLOGY Head CT: Pending official radiology report. Chest X-Ray: Patient: EMI LINTON. Record#: [id number] Birthdate: 1945 Age/Sex: 79 / M Location: [facility] Attending Dr: Ordering Physician: Kyle Ramirez MD Date of Service: 03/24/25 Procedure(s): XR chest 1V portable Accession Number(s): [id number] cc: Kash Thomas MD; Kyle Ramirez MD~ Examination: AP chest single view TECHNIQUE: AP portable semiupright chest single view Date and time: March 24, 2025 at 11:35 PM INDICATIONS: Chest pain today. FINDINGS: Normal heart size. No pneumonia or pulmonary edema. Prominent osteopenia. IMPRESSION: No pneumonia or pulmonary edema Dictated By: Kash Thomas MD Signed By: <Electronically signed by Kash Thomas MD in OV> 03/24/25 2354 LABS Hematology: RBC 3.76, Hgb 12.8, Hct 36.8%, RDW Std Deviation 46.5, Mower # 0.9, Immature Gran #, 0.03. Chemistry: 3.2, Chloride 96, Carbon Dioxide 31.1, Glucose 165, Lactic Acid 5.6. EKG (23:21) atrial fibrillation with a ventricular rate at 89 with left axis deviation, Q waves in V1 and V2, no acute ischemic 23:50 CXR shows normal cardiac silhouette, normal sharp diaphragmatic edge, no infiltrates, normal costophrenic angles, according to my interpretation. Medications / Prescriptions Medications or Prescriptions considered but not ordered:: None Medication administrations:: Medication Administration History Discontinued Medications Levetiracetam (Levetiracetam Inj 100 Mg/Ml Vial 5ml) 1,000 mg IVP X1 ONE Stop: 03/24/25 23:15 Last Admin: 03/25/25 00:14 Dose: 1,000 mg Documented By: CVL Potassium Chloride (Potassium Chloride 20 Meq Tabcr) 20 meq PO X1 ONE Stop: 03/25/25 02:57 Last Admin: 03/25/25 03:29 Dose: 20 meq Documented By: CVL See above if any Consultations Consultation(s) initiated? (list below): No Diagnosis Seizure Differential Diagnosis: intractable seizure disorder, focal seizure, generalized seizure, epileptic seizure and status epilepticus Most likely diagnosis given after review of the tests above:: See clinical impression below Admission Indicated Admission indicated?: not indicated Explain why admission is indicated or not indicated:: Patient has no emergent abnormalities in their studies and can be managed on an outpatient basis. Admission Request Was there a request for admission?: No Disposition Plan Disposition Plan: Discharge Discharge Attestation Discharge Attestation: The patient and all family members were given an opportunity to ask questions and understood the discharge instructions. Discharge instructions specifically effects, indications for sooner follow up or return to the emergency department, and the expected course of current diagnosis. Patient condition: Stable Discharge Plan Plan Patient Disposition: er Skilled [facility] Discharge Disposition comment: Safe for discharge to the SNF Patient condition on transfer: Stable Prescriptions/Referrals Prescriptions/Med Rec: No Action lisinopril 20 MG tablet 20 mg PO QDAY Qty: 0 amlodipine [Norvasc] 5 MG tablet 5 mg PO QDAY Qty: 0 hydrochlorothiazide 25 MG tablet 25 mg PO QAM Qty: 0 Levothyroxine * (SYNTHROID *) 100 MCG tablet 100 mcg PO QDAY Qty: 0 divalproex [Depakote] 250 mg Tablet,Delayed Release (Dr/Ec) 250 mg PO BID bisacodyl [Dulcolax (bisacodyl)] 10 mg Suppository 10 mg TN QDAY PRN (Reason: Constipation) oseltamivir [Tamiflu] 75 mg Capsule 75 mg PO Q12H donepezil 5 mg Tablet 5 mg PO HS levetiracetam [Keppra] 500 mg Tablet 1,000 mg PO BID hydrocodone-acetaminophen 5-325 mg Tablet 1 tab PO TID PRN (Reason: Pain) aspirin 81 mg Tablet,Delayed Release (Dr/Ec) 81 mg PO QDAY metformin 1,000 mg Tablet 1,000 mg PO BID cyclobenzaprine 5 mg Tablet 5 mg PO QHSPRN PRN (Reason: Muscle Spasm) Referrals: Lorraine Aburto MD [Primary Care Provider] - In 1 week Problem List Clinical Impression: Breakthrough seizure Patient/Caregiver Discharge Instructions Discharge Activity: activity as tolerated Education Materials: ED Seizure, Recurrent (Adult) Additional Instructions: Please return Guzman to the emergency department if he has any worsening or any further medical problems and we will help him. Otherwise he should be seen by his primary doctor within the next several days and follow-up. Colleen Romero had a breakthrough seizure. We gave him IV Keppra and observed him and he has had no further seizure activity. He is safe for return Print Language: Mohawk Stand Alone Forms: Margaret Award Info., Patient Portal Info Letter
[2025-03-25 00:06] LABS: Lactate (Lactic Acid) 5.6 mMol/L (0.4-2.0)
[2025-03-25 00:10] LABS: Basophils % (Auto) 0 % (0-2.5); Eosinophils # (Auto) 0.1 Thou/mm3 (0.0-0.5); Eosinophils % (Auto) 2 % (0-10); Hematocrit 36.8 % (41.0-53.0); Hemoglobin 12.8 g/dL (13.5-16.0); Immature Granulocytes % (Auto) 0 % (0-0); Immature Granulocytes Auto 0.03 Thou/mm3 (0.00-0.00); Lymphocytes # (Auto) 1.9 Thou/mm3 (1.0-4.8); Lymphocytes % (Auto) 23 % (10-50); Mean Corpuscular HGB Conc 34.8 g/dl (31.0-37.0); Mean Corpuscular Volume 98 fL (80-100); Monocytes # (Auto) 0.9 Thou/mm3 (0.0-0.8); Monocytes % (Auto) 11 % (0-12); Neutrophils # (Auto) 5.2 Thou/mm3 (1.8-7.7); Neutrophils % (Auto) 64 % (37-80); Nucleated Red Blood Cell % 0 /100 WBC (0); Platelet Count 156 Thou/mm3 (140-440); RDW Standard Deviation 46.5 fL (35.1-43.9); Red Blood Count 3.76 Miln/mm3 (4.50-5.90); White Blood Count 8.1 Thou/mm3 (3.8-10.6)
[2025-03-25] MEDS: levETIRAcetam INJ 100 MG/ML VIAL 5ML 1000 MG IVP (00:14)
[2025-03-25 00:21] LABS: Partial Thromboplastin Time 24.5 Seconds (22.0-36.0)
[2025-03-25 00:24] LABS: Alanine Aminotransferase 11 U/L (10-49); Albumin, Serum 4.2 gm/dL (3.4-4.8); Albumin/Globulin Ratio 1.8 (1.2-2.2); Alkaline Phosphatase 82 U/L (46-116); Anion Gap 16 (7-16); Aspartate Amino Transferase 18 U/L (0-34); BUN/Creatinine Ratio 13 Ratio (12-20); Bilirubin,Total 0.4 mg/dL (0.3-1.2); Blood Urea Nitrogen 14 mg/dL (9-23); Calcium 8.9 mg/dL (8.3-10.6); Calcium (Corrected) 8.9 mg/dL (8.5-10.1); Carbon Dioxide 31.1 mMol/L (20.0-31.0); Chloride 96 mMol/L (98-107); Creatine Kinase 77 U/L (34-171); Creatinine (Component) 1.1 mg/dL (0.6-1.3); Free T4 (Free Thyroxine) 1.33 ng/dL (0.89-1.76); Globulin 2.4 gm/dL (2.3-3.5); Glucose 165 mg/dL (74-106); Magnesium 1.8 mg/dL (1.6-2.6); Osmolality,Calculated 289 (275-295); Potassium 3.2 mMol/L (3.4-5.1); Sodium 143 mMol/L (136-145); Total Protein 6.6 gm/dL (5.7-8.2); Troponin I < 0.020 ng/mL (0.0-0.045); eGFR > 60 See Note
[2025-03-25 00:30] VITALS: BP 139/89; PULSE 84; RESP 17; TEMP 36.8; O2SAT 96
--- NOTE | 2025-03-25 01:00 | PC.NURSE ---
No s/s of sz like activity noted, pt continues to rest with no reports of pain or acute distress
--- NOTE | 2025-03-25 02:36 | PRELIM_ITS ---
CT scan of the head without intravenous contrast (axial sections with sagittal and coronal reformats) March 25, 2025 0151 hours Clinical History: Fall with head injury Comparison: No prior study is available for comparison. Findings: There is no evidence of intracranial hemorrhage, mass effect or midline shift. There is a chronic infarct in the left frontal lobe. There are periventricular and subcortical white matter hypodensities, compatible with chronic small vessel ischemia. There is mild volume loss. The calvarium is intact. The mastoid air cells and the visualized paranasal sinuses are clear. Impression: No evidence of intracranial hemorrhage, midline shift or calvarial fracture. Periventricular chronic small vessel ischemia, chronic infarct and volume loss. Report Electronically Signed By: Keshawn Waller 03/25/2025 2:35:35 AM [EST]
[2025-03-25 02:57] LABS: Reflex Lactate? Y
[2025-03-25 03:00] VITALS: BP 133/84; PULSE 80; RESP 17; TEMP 36.3; O2SAT 95
--- NOTE | 2025-03-25 03:00 | PC.NURSE ---
No s/s of sz like activity noted, pt continues to rest with no reports of pain or acute distress
[2025-03-25] MEDS: POTASSIUM CHLORIDE 20 mEq TABCR PO (03:29)
[2025-03-25 03:45] LABS: Lactic Acid, 3 HR 1.5 mMol/L (0.4-2.0)
[2025-03-25 05:00] VITALS: BP 117/78; PULSE 82; RESP 18; TEMP 36.4; O2SAT 96
--- NOTE | 2025-03-25 05:00 | PC.NURSE ---
No s/s of sz like activity noted, pt continues to rest with no reports of pain or acute distress
--- NOTE | 2025-03-25 05:05 | PC.NURSE ---
Broaching Machine Operator attempted to called report to [facility], no answer
--- NOTE | 2025-03-25 05:10 | PC.NURSE ---
Fire Technician again attempted to called report to [facility], no answer
--- NOTE | 2025-03-25 05:15 | PC.NURSE ---
Bad Credit Collector [place] attempted to called report to [facility], no answer. manager patient notified.
== END 2025-03-25 05:29 | disposition skilled nursing facility (03) ==
PROVIDERS: Emergency Provider Emergency Medicine; PCP Hospitalist
DX: R56.9 Unspecified convulsions (principal); S09.90XA Unspecified injury of head, initial encounter; I48.91 Unspecified atrial fibrillation; R07.9 Chest pain, unspecified; I10 Essential (primary) hypertension; W19.XXXA Unspecified fall, initial encounter
CPT/HCPCS: 36415; 70450; 71045; 80053; 82550; 83605; 83735; 84439; 84484; 85025; 85730; 93005; 96374; 99284; J1953; A9270

== ENCOUNTER 2025-08-22 21:42 | Emergency (ER) | payer MEDICARE, MEDICAID, SELFPAY ==
[2025-08-22 21:44] VITALS: BP 130/80; PULSE 88; RESP 16; TEMP 36.3; O2SAT 100
[2025-08-22 21:58] VITALS: BMI 20.5
--- NOTE | 2025-08-22 22:11 | EDNOTE_ITS ---
ED SOB =RME/HPI General Chief Complaint: Shortness of Breath/Dyspnea Stated Complaint: SOB Time Seen by Provider: 08/22/25 22:13 Arrival date/time: 08/22/25 21:42 RME / HPI RME / HPI Narrative: See [facility] for Dr. Mcbride's HPI Documentation. Related Data Home Medications ?Medication ?Instructions ?Recorded ?Confirmed Levothyroxine * (SYNTHROID *) 100 mcg PO QDAY #0 tabs 09/15/16 10/20/24 amlodipine 5 mg tablet (Norvasc) 5 mg PO QDAY #0 tabs 09/15/16 10/20/24 hydrochlorothiazide 25 mg tablet 25 mg PO QAM #0 tabs 09/15/16 10/20/24 lisinopril 20 mg tablet 20 mg PO QDAY #0 tabs 10/20/24 aspirin 81 mg tablet,delayed 81 mg PO QDAY 06/10/24 release cyclobenzaprine 5 mg tablet 5 mg PO QHSPRN PRN Muscle Spasm 06/10/24 10/20/24 donepezil 5 mg tablet 5 mg PO HS 06/10/24 10/20/24 hydrocodone 5 mg-acetaminophen 325 1 tab PO TID PRN Pa in 06/10/24 10/20/24 mg tablet levetiracetam 500 mg tablet 1,000 mg PO BID 06/10/24 1 (Keppra) metformin 1,000 mg tablet 1,000 mg PO BID 06/10/24 bisacodyl 10 mg rectal suppository 10 mg HI QDAY PRN C onstipation 10/20/24 10/20/24 (Dulcolax (bisacodyl)) divalproex 250 mg tablet,delayed 250 mg PO BID 4 10/20/24 release (Depakote) oseltamivir 75 mg capsule (Tamiflu) 75 mg PO Q12H 09/2310/20/24 Allergies Allergy/AdvReac Type Severity Reaction Status Date / Time No Known Allergies Allergy Verified 08/22/25 21:44 Review of Systems Review of Systems Systems Reviewed: All systems reviewed, normal except as documented Past Medical History Past Medical History NEUROLOGIC: Positive Neurological Disorders, Cerebrovascular Accident, Transient Ischemic Attacks (TIA), Dementia, Alzheimer's Disease, Seizures and Subdural Hem atoma CARDIAC: Positive Cardiac Disorders, Atrial Fibrillation and Hypertension MUSCULOSKELETAL: Positive Musculoskeletal Disorders ENDOCRINE: Positive Diabetes Mellitus Type 2 and Hypothyroidism ED Exam Narrative Physical exam: See [facility] for Dr. Mcbride's Physical Exam Documentation. Course Quality Measures none Orders Category Date Time Status EKG (ED ONLY) *Do not use* NOW Care 08/22/25 22:13 Completed EKG (ED Only) Stat Exams 08/22/25 22:13 Draft XR chest 1V portable Stat Exams 08/22/25 22:13 Completed Vital Signs Vital signs: Vital Signs Temperature 97.4 F 08/22/25 21:44 Pulse Rate 88 08/22/25 21:44 Respiratory Rate 16 08/22/25 21:44 Blood Pressure 130/80 08/22/25 21:44 Pulse Oximetry (%) 100 08/22/25 21:44 Oxygen Delivery Method Room Air 08/22/25 21:44 Shortness of Breath / Dyspnea [facility] Narrative [facility] Narrative:: This section includes all my notes and documentations, including HPI, PE, and ED course. Prince Mcbride MD HPI: 80 y/o male with Hx of CVA, TIA, Dementia, Alzheimer's Disease, Seizures, Atrial Fibrillation, Hypertension, and Diabetes Mellitus Type 2 BIBA from [facility] with possible hypoxia. NH staff noted hypoxia. EMS didn't note hypoxia. No shortness of breath or cough per patient. No fever. No other complaints. ROS: All negative except as documented in HPI. Physical Exam: General: Alert and oriented. No acute distress when remaining still. Eyes: Conjunctivae and lids clear. ENT: No nasal congestion. Pharynx normal. TM normal bilaterally. Neck: Supple. Heart: RRR. Lungs: No respiratory distress. Good air movement. No rhonchi, wheezing, rales. Abdomen: Soft and nontender. Normal bowel sounds. No distension. No rebound or guarding. Back: No CVA tenderness. Skin: Warm and dry. Neuro: Alert and oriented X 3. I reviewed EMS and [facility] notes. I reviewed all diagnostic test results: My interpretation of the EKG is: Atrial fibrillation (96 bpm) with nonspecific ST-T changes. My interpretation of the chest x-ray is: NAD. At this point, diagnoses include: Hypoxia at [place] Patient remained stable. Recommended continued monitoring at [place]. Based on my best medical judgment, made decision no further evaluation or treatment indicated at this time. Patient understands and agrees to the discharge instructions customized and printed, see below. Discharge Instructions from Dr. Mcbride printed for you: 1. Fortunately, no hypoxia noted here. 2. EKG and chest x-ray unremarkable. 3. Continue current management and seek immediate medical care with any concerns. Prince Mcbride MD Patient data External records reviewed:: [facility] previous records (Reviewed prior ED records from 03/24/25. Patient was seen for Breakthrough seizure.) and EMS form Clinical information provided by:: patient and EMS Social determinants that could affect healthcare access:: none Patient has the following chronic illnesses:: Cerebrovascular Accident, Transient Ischemic Attacks, Dementia, Alzheimer's Dis ease, Seizures, Subdural Hematoma, Atrial Fibrillation, Hypertension, Diabetes Mellitus Type 2 and Hypothyroidism How is presenting disease/condition affected by chronic disease/condition?: exacerbated by Evaluation data The following diagnostics were reviewed and interpreted by me:: radiology exam(s) and EKG tracing(s) (My interpretation of the EKG is: Atrial fibrillation (96 bpm) with nonspecific ST-T changes. Prince Mcbride MD) Lab and/or radiology exams considered but not ordered:: None Interpretation Summary: I reviewed all diagnostic test results: My interpretation of the EKG is: Atrial fibrillation (96 bpm) with nonspecific ST-T changes. My interpretation of the chest x-ray is: NAD. Medications / Prescriptions Medications or Prescriptions considered but not ordered:: None Medication administrations:: None Consultations Consultation(s) initiated? (list below): No Diagnosis Shortness of Breath Differential Diagnosis: congestive heart failure, community acquired pneumonia and pulmonary embolism Most likely diagnosis given after review of the tests above:: Hypoxia at IN Admission Indicated Admission indicated?: not indicated Explain why admission is indicated or not indicated:: With significant improvement and no condition needing emergent intervention, there was no indication for admission. Admission Request Was there a request for admission?: No Disposition Plan Disposition Plan: Discharge Discharge Attestation Discharge Attestation: The patient and all family members were given an opportunity to ask questions and understood the discharge instructions. Discharge instructions specifically effects, indications for sooner follow up or return to the emergency department, and the expected course of current diagnosis. Patient condition: Stable Discharge Plan Plan Patient Disposition: Xfer Skilled Nsg Fac (SNF) Prescriptions/Referrals Prescriptions/Med Rec: No Action lisinopril 20 MG tablet 20 mg PO QDAY Qty: 0 amlodipine [Norvasc] 5 MG tablet 5 mg PO QDAY Qty: 0 hydrochlorothiazide 25 MG tablet 25 mg PO QAM Qty: 0 Levothyroxine * (SYNTHROID *) 100 MCG tablet 100 mcg PO QDAY Qty: 0 divalproex [Depakote] 250 mg Tablet,Delayed Release (Dr/Ec) 250 mg PO BID bisacodyl [Dulcolax (bisacodyl)] 10 mg Suppository 10 mg HI QDAY PRN (Reason: Constipation) oseltamivir [Tamiflu] 75 mg Capsule 75 mg PO Q12H donepezil 5 mg Tablet 5 mg PO HS levetiracetam [Keppra] 500 mg Tablet 1,000 mg PO BID hydrocodone-acetaminophen 5-325 mg Tablet 1 tab PO TID PRN (Reason: Pain) aspirin 81 mg Tablet,Delayed Release (Dr/Ec) 81 mg PO QDAY metformin 1,000 mg Tablet 1,000 mg PO BID cyclobenzaprine 5 mg Tablet 5 mg PO QHSPRN PRN (Reason: Muscle Spasm) Problem List Clinical Impression: Hypoxia Patient/Caregiver Discharge Instructions Discharge Activity: activity as tolerated Additional Instructions: Discharge Instructions from Dr. Mcbride printed for you: 1. Fortunately, no hypoxia noted here. 2. EKG and chest x-ray unremarkable. 3. Continue current management and seek immediate medical care with any concerns. Print Language: Khmer Stand Alone Forms: Margaret Award Info., Patient Portal Info Letter
--- NOTE | 2025-08-22 22:13 | XR_ITS ---
EXAMINATION: AP chest single view TECHNIQUE: AP portable upright chest single view Date and time: 2024, 10:00 a.m. INDICATIONS: Shortness of breath today. FINDINGS: Mild enlargement left ventricle Ectatic thoracic aorta. No pneumonia or pulmonary edema. Prominent osteopenia IMPRESSION: No pneumonia or pulmonary edema
--- NOTE | 2025-08-22 22:13 | EKG_ITS ---
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
[2025-08-23 00:23] VITALS: BP 118/85; PULSE 78; RESP 16; TEMP 36.6; O2SAT 95
--- NOTE | 2025-08-23 00:28 | PC.NURSE ---
CALLED [facility] AND I SPOKE TO CANDELARIO WHO WILL BE THE NURSE TAKING CARE OF THIS PT AND GAVE REPORT.
== END 2025-08-23 01:42 | disposition skilled nursing facility (03) ==
PROVIDERS: Emergency Provider Emergency Medicine; PCP Family Medicine
DX: R09.02 Hypoxemia (principal); E11.9 Type 2 diabetes mellitus without complications; F02.80 Dementia in other diseases classified elsewhere, unspecified severity, without behavioral disturbance, psychotic disturbance, mood disturbance, and anxiety; G30.9 Alzheimer's disease, unspecified; I10 Essential (primary) hypertension; I48.91 Unspecified atrial fibrillation; Z79.84 Long term (current) use of oral hypoglycemic drugs; Z86.73 Personal history of transient ischemic attack (TIA), and cerebral infarction without residual deficits
CPT/HCPCS: 71045; 93005; 99282

== ENCOUNTER 2025-09-17 20:16 | Emergency (ER) | payer MEDICARE, MEDICAID, SELFPAY ==
--- NOTE | 2025-09-17 20:21 | XR_ITS ---
Examination: CT abdomen with intravenous contrast CT pelvis with intravenous contrast 2-D coronal reconstructions 2-D sagittal reconstructions Date and time of exam: September 17, 2025, 11:04 p.m INDICATIONS: Abdominal pain constipation today. CTDI: vol (mGy) 17.08 DLP: (mGycm) 715 Technique: Multiple axial sections of the abdomen and pelvis have been obtained. 64 slice high-resolution scanner used. 3 mm axial sections have been obtained, post intravenous injection 60 cc Isovue 370 2-D sagittal, coronal reconstructions obtained. Low dose protocols were performed. One or more of the following dose reduction techniques were used; automated exposure control, adjustment of the mA and/or KV according to patient size, use of iterative reconstruction technique. Findings: Atelectasis versus pneumonia at the right lung base Mild enlargement cardiac contour No visualized liver or splenic lesion No gallstones No pancreatic or adrenal mass No renal or ureteral calculi No pericecal inflammatory change Large amount of stool in the rectosigmoid and rectum Mild prostatomegaly No bladder mass Severe osteopenia with chronic severe compression L1 and milder chronic compressions L5 L4 IMPRESSION: Atelectasis versus pneumonia at the right lung base clinical correlation advised No renal or ureteral calculi, no hydronephrosis Large amounts of stool throughout the entire colon
--- NOTE | 2025-09-17 20:21 | XR_ITS ---
Examination: Abdomen sonogram, Limited Date and time of exam: September 10, 2025, 0010 hours INDICATIONS: Right-sided abdominal pain today Technique: Real-time agudelo scale transabdominal sonographic images of the upper abdomen obtained. Findings: Possible gallbladder sludge Normal gallbladder wall 0.3 cm Common bile duct 0.4 cm Pancreas obscured by bowel gas Liver 14.8 cm fatty infiltration Normal hepatopetal portal venous flow Patent IVC IMPRESSION: Gallbladder sludge, negative for cholelithiasis, negative for cholecystitis Normal common bile duct
--- NOTE | 2025-09-17 20:22 | PD.EDABDPN ---
ED Abdominal Pain RME/HPI General Chief Complaint: Abdominal Pain Stated complaint: ABD PAIN Time seen by provider: 09/17/25 20:33 Arrival date/time: 09/17/25 20:16 RME / HPI RME / HPI narrative: See [facility] for Dr. Mcbride's HPI Documentation. Related Data Home Medications ?Medication ?Instructions ?Recorded ?Confirmed Levothyroxine * (SYNTHROID *) 100 mcg PO QDAY #0 tabs 09/15/16 10/20/24 amlodipine 5 mg tablet (Norvasc) 5 mg PO QDAY #0 tabs 09/15/16 10/20/24 hydrochlorothiazide 25 mg tablet 25 mg PO QAM #0 tabs 09/15/16 10/20/24 lisinopril 20 mg tablet 20 mg PO QDAY #0 tabs 09/15/16 10/20/24 aspirin 81 mg tablet,delayed 81 mg PO QDAY 06/10/24 10/20/24 release cyclobenzaprine 5 mg tablet 5 mg PO QHSPRN PRN Muscle Spasm 06/10/24 10/20/24 donepezil 5 mg tablet 5 mg PO HS 06/10/24 10/20/24 hydrocodone 5 mg-acetaminophen 325 1 tab PO TID PRN Pain 06/10/24 10/20/24 mg tablet levetiracetam 500 mg tablet 1,000 mg PO BID 06/10/24 10/20/24 (Keppra) metformin 1,000 mg tablet 1,000 mg PO BID 06/10/24 10/20/24 bisacodyl 10 mg rectal suppository 10 mg KS QDAY PRN Constipation 10/20/24 10/20/24 (Dulcolax (bisacodyl)) divalproex 250 mg tablet,delayed 250 mg PO BID 10/20/24 10/20/24 release (Depakote) oseltamivir 75 mg capsule (Tamiflu) 75 mg PO Q12H 10/20/24 10/20/24 Previous Rx's ?Medication ?Instructions ?Recorded magnesium hydroxide 2,400 mg/10 mL 30 ml PO QDAY PRN constipation #60 09/18/25 oral suspension (Milk Of Magnesia mL Concentrated) Allergies Allergy/AdvReac Type Severity Reaction Status Date / Time No Known Allergies Allergy Verified 08/22/25 21:44 Review of Systems Review of Systems Systems Reviewed: All systems reviewed, normal except as documented Past Medical History Past Medical History NEUROLOGIC: Positive Neurological Disorders, Cerebrovascular Accident, Transient Ischemic Attacks (TIA), Dementia, Alzheimer's Disease, Seizures and Subdural Hematoma CARDIAC: Positive Cardiac Disorders, Atrial Fibrillation and Hypertension MUSCULOSKELETAL: Positive Musculoskeletal Disorders ENDOCRINE: Positive Diabetes Mellitus Type 2 and Hypothyroidism ED Exam Narrative Physical exam: See [facility] for Dr. Mcbride's Physical Exam Documentation. Course Quality Measures none Orders Category Date Time Status CT Screening NOW Care 09/17/25 20:21 Completed Saline [Insert IV] NOW Care 09/17/25 20:20 Completed Straight [In and Out Catheter] X1 Care 09/17/25 20:[address] abdomen pelvis w con Stat Exams 09/17/25 20:21 Completed US gall bladder Stat Exams 09/17/25 20:21 Taken Amylase Stat Lab 09/17/25 20:40 Completed Bilirubin,Direct Stat Lab 09/17/25 20:40 Completed CBC Stat Lab 09/17/25 20:40 Completed CMP [Comprehensive Metabolic Panel] Stat Lab 09/17/25 20:40 Completed Lipase Stat Lab 09/17/25 20:40 Completed Magnesium Stat Lab 09/17/25 20:40 Completed Morphine* Inj Med 09/17/25 20:20 Discontinued 4 mg IV X1 ONE Ondansetron Inj [Zofran Inj] Med 09/17/25 20:20 Discontinued 4 mg IVP X1 ONE POTASSIUM CHL 10% Liq 15 ML Med 09/17/25 22:34 Discontinued 40 meq PO X1 ONE Ringers Lactated 1000 ml [Lactated Ringers] 1,000 ml Med 09/18/25 02:16 Discontinued IV 1,000 mls/hr Sodium Chloride 0.9% 1000 ml [Ns] 1,000 ml Med 09/17/25 20:20 Discontinued IV 999 mls/hr Vital Signs Vital signs: Vital Signs Temperature 98.7 F 09/17/25 20:38 Pulse Rate 83 09/17/25 20:38 Respiratory Rate 18 09/17/25 20:38 Blood Pressure 130/97 H 09/17/25 20:38 Pulse Oximetry (%) 93 L 09/17/25 20:38 Oxygen Delivery Method Room Air 09/17/25 20:38 Abdominal Pain MDM MDM Narrative MDM Narrative:: This section includes all my notes and documentations, including HPI, PE, and ED course. Prince Mcbride MD HPI: 80 y/o male with Hx of CVA, TIA, Dementia, Alzheimer's Disease, HTN, and Type II DM BIBA from SNF with equivocal abdominal pain and no bowel movement for several days. Patient reports no abdominal pain or vomiting. No other complaints. ROS: All negative except as documented in HPI. Physical Exam: General: Alert and oriented X 1. No acute distress. Eyes: Conjunctivae and lids clear. ENT: No nasal congestion. Neck: Supple. Heart: RRR. Lungs: No respiratory distress. Good air movement. No rhonchi, wheezing, rales. Abdomen: Soft with equivocal tenderness, difficult to localize. Normal bowel sounds. No distension. No rebound or guarding. Back: No CVA tenderness. Skin: Warm and dry. Neuro: Alert and oriented X 3. I reviewed EMS and [facility]. I reviewed all diagnostic test results: My review of the Abdomen/Pelvis CT report is the patient. My review of the Gall Bladder US report is NAD. Blood tests unremarkable. At this point, diagnoses include: Constipation Treatment here included: IVF Morphine 4 mg IV Zofran 4 mg IV Recommended a trial of conservative treatment. Based on my best medical judgment, made decision no further evaluation or treatment indicated at this time. Discharge instructions from Dr. Mcbride printed for you: ?After extensive evaluation, there is no emergency.? Such as appendicitis or bowel obstruction needing urgent surgery. -You have constipation. ? Milk of magnesia for constipation, as prescribed. ?To help current constipation and prevent future constipation, increase oral fluid because dehydration cause severe constipation.? Maintain clear urine.? If dark or yellow, increase oral fluid. ?And every day, increase fresh fruits and fresh vegetables and physical exercise. ?See a private doctor on 09/21/2025 for recheck. To make sure there is no serious underlying abdominal condition, ask to help you get more care not available here in the ER.? Such as EGD or scoping of your stomach, colonoscopy or scoping the colon, and a referral to see a cashier payments received. ?Seek immediate medical care with worsening or with any concerns. Prince Mcbride MD Patient data External records reviewed:: [facility] previous records (Reviewed prior ED records from 08/22/25. Patient was seen for Hypoxia.) and EMS form Clinical information provided by:: patient and EMS Social determinants that could affect healthcare access:: mental health Patient has the following chronic illnesses:: Cerebrovascular Accident, Transient Ischemic Attacks (TIA), Dementia, Alzheimer's Disease, Seizures, Subdural Hematoma, Atrial Fibrillation and Hypertension, Diabetes Mellitus Type 2, Hypothyroidism How is presenting disease/condition affected by chronic disease/condition?: exacerbated by Evaluation data The following diagnostics were reviewed and interpreted by me:: lab results and radiology exam(s) Lab and/or radiology exams considered but not ordered:: None Interpretation Summary: I reviewed all diagnostic test results: My review of the Abdomen/Pelvis CT report is the patient. My review of the Gall Bladder US report is NAD. Blood tests unremarkable. Medications / Prescriptions Medications or Prescriptions considered but not ordered:: None Medication administrations:: Medication Administration History Discontinued Medications Sodium Chloride (Ns) 1,000 mls @ 999 mls/hr IV .Q1H1M ONE Stop: 09/17/25 21:20 Last Infusion: 09/17/25 21:56 Dose: Infused Documented By: Admin: 09/17/25 20:55 Dose: 999 mls/hr Documented By: ZENIA Lactated Ringer's (Lactated Ringers) 1,000 mls @ 1,000 mls/hr IV .Q1H ONE Stop: 09/18/25 03:15 Last Infusion: 09/18/25 03:53 Dose: Infused Documented By: Admin: 09/18/25 02:31 Dose: 1,000 mls/hr Documented By: ZENIA Morphine Sulfate (Morphine Sulf Inj 4 Mg/Ml Vial) 4 mg IV X1 ONE Stop: 09/17/25 20:21 Last Admin: 09/17/25 20:54 Dose: 4 mg Documented By: ZENIA Ondansetron HCl (Ondansetron Inj 2 Mg/Ml Inj 2 Ml) 4 mg IVP X1 ONE; Protocol Stop: 09/17/25 20:21 Last Admin: 09/17/25 20:54 Dose: 4 mg Documented By: ZENIA Potassium Chloride (Potassium Chloride 10% 20 Meq/15 Ml Udc) 40 meq PO X1 ONE Stop: 09/17/25 22:35 Last Admin: 09/18/25 02:28 Dose: Not Given Documented By: ZENIA Non-Admin Reason: Patient Refused Treatment here included: IVF Morphine 4 mg IV Zofran 4 mg IV Consultations Consultation(s) initiated? (list below): No Diagnosis Differential diagnosis abdominal pain: abdominal pain, calculus of kidney, constipation, diverticulitis, gastroenteritis, pancreatitis and small bowel obstruction Most likely diagnosis given after review of the tests above:: Constipation Admission Indicated Admission indicated?: not indicated Explain why admission is indicated or not indicated:: With no condition needing emergent intervention, there was no indication for admission. Admission Request Was there a request for admission?: No Disposition Plan Disposition Plan: Discharge Discharge Attestation Discharge Attestation: The patient and all family members were given an opportunity to ask questions and understood the discharge instructions. Discharge instructions specifically effects, indications for sooner follow up or return to the emergency department, and the expected course of current diagnosis. Patient condition: Stable Discharge Plan Plan Patient Disposition: Xfer Skilled Nsg Fac (SNF) Prescriptions/Referrals Prescriptions/Med Rec: New magnesium hydroxide [Milk Of Magnesia Concentrated] 2,400 mg/10 mL suspension 30 ml PO QDAY PRN (Reason: constipation) Qty: 60 0RF No Action lisinopril 20 MG tablet 20 mg PO QDAY Qty: 0 amlodipine [Norvasc] 5 MG tablet 5 mg PO QDAY Qty: 0 hydrochlorothiazide 25 MG tablet 25 mg PO QAM Qty: 0 Levothyroxine * (SYNTHROID *) 100 MCG tablet 100 mcg PO QDAY Qty: 0 divalproex [Depakote] 250 mg Tablet,Delayed Release (Dr/Ec) 250 mg PO BID bisacodyl [Dulcolax (bisacodyl)] 10 mg Suppository 10 mg KS QDAY PRN (Reason: Constipation) oseltamivir [Tamiflu] 75 mg Capsule 75 mg PO Q12H donepezil 5 mg Tablet 5 mg PO HS levetiracetam [Keppra] 500 mg Tablet 1,000 mg PO BID hydrocodone-acetaminophen 5-325 mg Tablet 1 tab PO TID PRN (Reason: Pain) aspirin 81 mg Tablet,Delayed Release (Dr/Ec) 81 mg PO QDAY metformin 1,000 mg Tablet 1,000 mg PO BID cyclobenzaprine 5 mg Tablet 5 mg PO QHSPRN PRN (Reason: Muscle Spasm) Referrals: No Primary/Family,Physician [Primary Care Provider] - In 1 week Problem List Clinical Impression: Constipation Patient/Caregiver Discharge Instructions Discharge Activity: activity as tolerated Education Materials: ED Constipation (Adult) Additional Instructions: Discharge instructions from Dr. Mcbride printed for you: ?After extensive evaluation, there is no emergency.? Such as appendicitis or bowel obstruction needing urgent surgery. -You have constipation. ? Milk of magnesia for constipation, as prescribed. ?To help current constipation and prevent future constipation, increase oral fluid because dehydration cause severe constipation.? Maintain clear urine.? If dark or yellow, increase oral fluid. ?And every day, increase fresh fruits and fresh vegetables and physical exercise. ?See a private doctor on 09/21/2025 for recheck. To make sure there is no serious underlying abdominal condition, ask to help you get more care not available here in the ER.? Such as EGD or scoping of your stomach, colonoscopy or scoping the colon, and a referral to see a cashier payments received. ?Seek immediate medical care with worsening or with any concerns. Print Language: Maldivian Stand Alone Forms: Margaret Award Info., Patient Portal Info Letter
[2025-09-17 20:38] VITALS: BP 130/97; PULSE 83; RESP 18; TEMP 37.1; O2SAT 93
[2025-09-17 20:40] VITALS: PULSE 71; RESP 20; O2SAT 97
[2025-09-17 20:49] VITALS: BP 130/97; PULSE 74; RESP 16; TEMP 37; O2SAT 98
[2025-09-17] MEDS: MORPHINE SULF INJ 4 MG/ML VIAL IV (20:54)
[2025-09-17] MEDS: ONDANSETRON INJ 2 MG/ML INJ 2 ML 4 MG IVP (20:54)
[2025-09-17] MEDS: SODIUM CHLORIDE 0.9% 1000 ML 1,000 ML 999 ML IV (20:55)
[2025-09-17 21:32] LABS: Basophils # (Auto) 0.0 Thou/mm3 (0.0-0.2); Basophils % (Auto) 0 % (0-2.5); Eosinophils # (Auto) 0.1 Thou/mm3 (0.0-0.5); Eosinophils % (Auto) 1 % (0-10); Hematocrit 34.5 % (41.0-53.0); Hemoglobin 11.9 g/dL (13.5-16.0); Immature Granulocytes Auto 0.01 Thou/mm3 (0.00-0.00); Lymphocytes # (Auto) 1.7 Thou/mm3 (1.0-4.8); Lymphocytes % (Auto) 29 % (10-50); Mean Corpuscular HGB Conc 34.5 g/dl (31.0-37.0); Mean Corpuscular Hemoglobin 34.0 pg (25.0-35.0); Mean Corpuscular Volume 99 fL (80-100); Monocytes # (Auto) 0.8 Thou/mm3 (0.0-0.8); Monocytes % (Auto) 14 % (0-12); Neutrophils # (Auto) 3.3 Thou/mm3 (1.8-7.7); Neutrophils % (Auto) 55 % (37-80); Nucleated Red Blood Cell # 0.00 Thou/mm3 (0.00-0.00); Nucleated Red Blood Cell % 0 /100 WBC (0); Platelet Count 125 Thou/mm3 (140-440); RDW Standard Deviation 48.0 fL (35.1-43.9); Red Blood Count 3.50 Miln/mm3 (4.50-5.90); White Blood Count 5.9 Thou/mm3 (3.8-10.6)
[2025-09-17 22:21] LABS: Alanine Aminotransferase 12 U/L (10-49); Albumin, Serum 4.2 gm/dL (3.4-4.8); Albumin/Globulin Ratio 2.0 (1.2-2.2); Alkaline Phosphatase 53 U/L (46-116); Amylase 31 U/L (30-118); Anion Gap 9 (7-16); Aspartate Amino Transferase 24 U/L (0-34); BUN/Creatinine Ratio 17 Ratio (12-20); Bilirubin,Direct 0.2 mg/dL (0.0-0.3); Bilirubin,Total 0.4 mg/dL (0.3-1.2); Blood Urea Nitrogen 20 mg/dL (9-23); Calcium 9.8 mg/dL (8.3-10.6); Calcium (Corrected) 9.8 mg/dL (8.5-10.1); Carbon Dioxide 37.2 mMol/L (20.0-31.0); Chloride 97 mMol/L (98-107); Creatinine (Component) 1.2 mg/dL (0.6-1.3); Globulin 2.1 gm/dL (2.3-3.5); Glucose 127 mg/dL (74-106); Lipase 21 U/L (12-53); Magnesium 1.9 mg/dL (1.6-2.6); Osmolality,Calculated 289 (275-295); Potassium 3.2 mMol/L (3.4-5.1); Sodium 143 mMol/L (136-145); Total Protein 6.3 gm/dL (5.7-8.2); eGFR > 60 See Note
[2025-09-18 00:40] VITALS: BP 110/70; PULSE 75; RESP 15; TEMP 36.9; O2SAT 95
[2025-09-18] MEDS: RINGERS LACTATED 1000 ML 1,000 ML IV (02:31)
[2025-09-18 03:00] VITALS: BP 160/94; PULSE 73; RESP 14; TEMP 37.1; O2SAT 96
--- NOTE | 2025-09-18 03:19 | PRELIM_ITS ---
Gallbladder ultrasound. September 18, 2025 0015 hours Clinical history: RUQ tenderness. Comparison: No prior study is available for comparison. Findings: Gallbladder wall is 3 mm thick. Common bile duct is 4 mm in diameter. Pancreas is obscured. Liver is 14.8 cm long. No focal hepatic lesion. No free fluid. Main portal vein is antegrade. Exam is limited by body habitus. No pericholecystic fluid. Possible gallbladder sludge. No cholelithiasis. Impression: Limited exam. Possible gallbladder sludge. No cholelithiasis or findings of cholecystitis. Report Electronically Signed By: Jose Antonio Cain 09/18/2025 3:19:08 AM [EST]
[2025-09-18 05:00] VITALS: BP 118/76; PULSE 77; RESP 16; TEMP 37.1; O2SAT 98
== END 2025-09-18 05:43 | disposition skilled nursing facility (03) ==
PROVIDERS: Emergency Provider Emergency Medicine
DX: K59.00 Constipation, unspecified (principal); R10.9 Unspecified abdominal pain
CPT/HCPCS: 36415; 74177; 76705; 80053; 81001; 82150; 82248; 83690; 83735; 85025; 96361; 96374; 99284; A4649; J2270; J2405; J7030; J7120; Q9967